=== PATIENT | female | born 2000 | race African-American/Black ===

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

== ENCOUNTER 2024-03-06 13:53 | Outpatient (CLI) | payer OTHER | END 2024-03-06 13:55 | disposition home or self-care (01) | LOC: PRENATAL 13:53 | PROVIDERS: ATTEND Obstetrics & Gynecology Maternal & Fetal Medicine | DX: O36.80X0 Pregnancy with inconclusive fetal viability, not applicable or unspecified (principal); Z36.82 Encounter for antenatal screening for nuchal translucency; Z14.8 Genetic carrier of other disease; Z3A.13 13 weeks gestation of pregnancy ==

== ENCOUNTER → 2024-05-16 10:21 | Outpatient (CLI) | payer OTHER | END | disposition home or self-care (01) | LOC: PRENATAL 10:21 | PROVIDERS: ATTEND Obstetrics & Gynecology Maternal & Fetal Medicine | DX: O35.9XX0 Maternal care for (suspected) fetal abnormality and damage, unspecified, not applicable or unspecified (principal); O35.3XX0 Maternal care for (suspected) damage to fetus from viral disease in mother, not applicable or unspecified; O44.02 Complete placenta previa NOS or without hemorrhage, second trimester; Z3A.24 24 weeks gestation of pregnancy ==

== ENCOUNTER → 2024-07-10 13:22 | Outpatient (CLI) | payer OTHER | END | disposition home or self-care (01) | LOC: PRENATAL 13:22 | PROVIDERS: ATTEND Obstetrics & Gynecology Maternal & Fetal Medicine | DX: O26.849 Uterine size-date discrepancy, unspecified trimester (principal); O36.8199 Decreased fetal movements, unspecified trimester, other fetus; Z3A.32 32 weeks gestation of pregnancy ==

== ENCOUNTER 2024-08-23 11:11 | Inpatient (IN) | payer OTHER ==
[~2024-08-23] VITALS: Ht 152.4 cm; Wt 3.2 kg
[2024-08-23 11:14] LABS: HEMATOCRIT 32.3 % (36.0-45.00); HEMOGLOBIN 10.3 g/dL (12.0-15.00); MEAN CELL VOLUME 83.4 fL (80.00-100.00); MEAN CORPUSCULAR HEMOGLOBIN 26.7 pg (27.00-32.0); PLATELET COUNT 243 K/uL (150-450); RED BLOOD COUNT 3.87 M/uL (4.00-6.00); RED CELL DISTRIBUTION WIDTH 15.7 % (11.5-14.5)
[2024-08-23 11:19] LABS: PH,URINE 6.5 (5.0-8.0); URINE APPEARANCE Cloudy; URINE BILIRRUBIN Negative (NEGATIVE); URINE BLOOD NHT; URINE COLOR Yellow; URINE GLUCOSE Negative (NEGATIVE); URINE KETONE Negative (NEGATIVE); URINE LEUKOCYTE Moderate; URINE NITRATE Negative; URINE PROTEIN Negative (NEGATIVE)
[2024-08-23 11:23] LABS: URINE BACTERIA 4183.3 uL (0.0-1933); URINE RBC 8.5 uL (0.0-20.8); URINE WBC 328.5 uL (0.0-23.2)
[2024-08-23 11:34] LABS: INR < 0.93; PARTIAL THROMBOPLASTIN TIME 28.4 SECONDS (22.0-34.0); PROTHROMBIN TIME 9.8 SECONDS (9.0-11.5)
[2024-08-23 11:57] LABS: URINE CAST 0.14 uL (0.0-1.40); URINE EPITHELIAL CELLS > 201.7 uL (0.0-38.8)
[2024-08-23 12:22] LABS: ALBUMIN 2.9 gm/dL (3.4-5.0); BILIRUBIN TOTAL 0.31 mg/dL (0.3-1.2); CALCIUM 8.5 mg/dL (8.5-10.1); CREATININE SERUM 0.46 mg/dL (0.55-1.02); GFR 168.34; POTASSIUM 3.93 mEq/L (3.5-5.1); TOTAL PROTEIN 6.9 gm/dL (6.4-8.2)
[2024-09-01] MEDS ORDERED: PRENATAL + DHA1 EAC1 PO (07:49)
[2024-09-01 07:50] VITALS: BP 109/71
[2024-09-01] MEDS ORDERED: OXYTOCIN 10 UNITS/ML VIAL ONE ×2 (09:53→14:45)
[2024-09-01] MEDS ORDERED: ERYTHROMYCIN BASE OPHT 1GM EACH TUBE OP ONE (09:54)
[2024-09-01] MEDS ORDERED: AMPICILLIN SODIUM 1,000 MG VIAL ONE (10:10)
[2024-09-01] MEDS ORDERED: MORPHINE SULFATE 4 MG/ML CARTRIDGE IV PRN (11:45)
[2024-09-01] MEDS ORDERED: SIMETHICONE 125 MG CAPSULE PO SCH (13:00)
[2024-09-01] MEDS ORDERED: MORPHINE SULFATE 4 MG/ML VIAL IV ONE (13:05)
[2024-09-01] MEDS ORDERED: RINGERS SOLUTION,LACTATED 1,000 ML IV SCH (13:15)
[2024-09-01] MEDS ORDERED: OXYTOCIN 1,000 ML IV SCH (13:15)
[2024-09-01 15:47] LABS: BASO % 0.3 % (0.1-1.2); EOS # 0.03 (0.04-0.54); EOS % 0.3 % (0.7-7.0); HEMOGLOBIN 9.5 g/dL (11.2-15.7); LYMPH # 0.82 (1.18-3.74); MEAN CORPUSCULAR HEMOGLOBIN 26.2 pg (25.6-32.2); MONO # 0.52 (0.24-0.82); MONO % 4.4 % (4.7-12.5); NEUT # 10.31 (1.56-6.13); NEUT % 87.6 % (34.0-71.1); PLATELET COUNT 234 K/uL (163-369); RED BLOOD COUNT 3.63 M/uL (3.93-5.22); RED CELL DISTRIBUTION WIDTH 14.7 % (11.6-14.4)
[2024-09-01 16:00] VITALS: BP 111/66; BP 120/80
[2024-09-01] MEDS ORDERED: DOCUSATE SODIUM 100MG CAP PO SCH (17:00)
[2024-09-02] VITALS: BP 113/69
[2024-09-02 04:30] VITALS: BP 117/74
[2024-09-02] MEDS ORDERED: IBUprofen 800 MG TABLET PO SCH (09:00)
[2024-09-02 09:14] VITALS: BP 119/71
[2024-09-02 16:46] VITALS: BP 107/67
[2024-09-02 20:40] VITALS: BP 116/65
[2024-09-03] VITALS: BP 102/65
[2024-09-03 08:00] VITALS: BP 122/70
[2024-09-03 16:55] VITALS: BP 112/73
[2024-09-04 00:02] VITALS: BP 105/61
[2024-09-04 08:00] VITALS: BP 95/57
== END 2024-09-04 13:54 | disposition home or self-care (01) | DRG 785 ==
LOC: OB/GYN 09-01 07:21 → O/R 09-01 07:21 → OB/GYN 09-01 09:15
PROVIDERS: ADMIT Obstetrics & Gynecology; ATTEND Obstetrics & Gynecology
PROC: 0UB70ZZ Excision of Bilateral Fallopian Tubes, Open Approach (ICD-10-PCS; 2024-09-01)
PROC: 4A1HXCZ Monitoring of Products of Conception, Cardiac Rate, External Approach (ICD-10-PCS; 2024-09-01)
PROC: 10D00Z1 Extraction of Products of Conception, Low, Open Approach (ICD-10-PCS; principal; 2024-09-01 09:15)
DX: O34.211 Maternal care for low transverse scar from previous cesarean delivery (principal); Z30.2 Encounter for sterilization; Z3A.39 39 weeks gestation of pregnancy; Z37.0 Single live birth